=== PATIENT | male | born 1990 | race Caucasian/White ===

== ENCOUNTER 2018-11-05 15:36 | Emergency (ER) | payer BC ==
[~2018-11-05] VITALS: Ht 165.1 cm; Wt 79.4 kg
[2018-11-05 16:15] VITALS: Ht 165.1 cm; Wt 79.4 kg
[2018-11-05 19:03] VITALS: BP 130/74
== END 2018-11-05 19:03 | disposition home or self-care (01) ==
LOC: EDBD 15:36 → ED 15:36
DX: S86.912A Strain of unspecified muscle(s) and tendon(s) at lower leg level, left leg, initial encounter (principal); E78.00 Pure hypercholesterolemia, unspecified; Z88.0 Allergy status to penicillin; X58.XXXA Exposure to other specified factors, initial encounter; Y93.39 Activity, other involving climbing, rappelling and jumping off; Y92.89 Other specified places as the place of occurrence of the external cause; Y99.8 Other external cause status